=== PATIENT | female | born 1970 | race Caucasian/White ===

== ENCOUNTER 2021-08-24 09:33 | Emergency (ER) | payer OTHER ==
[~2021-08-24] VITALS: Ht 167.6 cm; Wt 79.0 kg
[2021-08-24] MEDS ORDERED: ACETAMINOPHEN 325MG TABLET PO ONE (10:15)
[2021-08-24] MEDS ORDERED: METHOCARBAMOL 500MG TABLET PO ONE (10:15)
[2021-08-24] MEDS ORDERED: METH-653 MT (10:20)
[2021-08-24 12:36] VITALS: BP 147/68
== END 2021-08-24 12:38 | disposition home or self-care (01) ==
LOC: ER 09:45
DX: M79.18 Myalgia, other site (principal); M54.2 Cervicalgia; M54.9 Dorsalgia, unspecified; R07.89 Other chest pain; I10 Essential (primary) hypertension; F41.9 Anxiety disorder, unspecified; E11.9 Type 2 diabetes mellitus without complications; V43.52XA Car driver injured in collision with other type car in traffic accident, initial encounter; Y93.89 Activity, other specified; Y92.410 Unspecified street and highway as the place of occurrence of the external cause; Z88.8 Allergy status to other drugs, medicaments and biological substances
CPT/HCPCS: 71046; 72040; 72110; 93005; 99284